=== PATIENT | male | born 1960 | race Caucasian/White ===

== ENCOUNTER 2019-09-22 09:49 | Outpatient (CLI) | payer BC, SELFPAY ==
--- NOTE | 2019-09-22 10:15 | US_ITS ---
WS: [id number] RIGHT UPPER QUADRANT ULTRASOUND HISTORY: pain right upper abdomen COMPARISON: None available. Liver: 16.7 cm in length. Normal size and echogenicity with no intrahepatic dilatation. No mass. Gallbladder: Normally distended gallbladder with no stones or wall thickening. CBD: 4.1 mm Pancreas: Not well visualized. Large amount of bowel gas. Right kidney: 11.2 cm in length. Normal echogenicity with no mass or hydronephrosis. Aorta and IVC: Unremarkable. No ascites. US/US gall bladder [id number] IMPRESSION: Normal RIGHT upper quadrant ultrasound.
== END 2019-09-22 09:50 | disposition home or self-care (01) ==
LOC: RAD 09:53
PROVIDERS: Visit Provider Nurse Practitioner
DX: R10.811 Right upper quadrant abdominal tenderness (principal)
CPT/HCPCS: 76705; 80053; 81003; 85025

== ENCOUNTER → 2021-01-10 09:59 | Outpatient (BNVA) | payer BC, SELFPAY | PROVIDERS: PCP Nurse Practitioner; Visit Provider Nurse Practitioner | DX: I10 Essential (primary) hypertension (principal); M10.9 Gout, unspecified; E55.9 Vitamin D deficiency, unspecified; M25.50 Pain in unspecified joint | CPT/HCPCS: 80053; 80061; 81000; 82306; 84443; 84550; 85025 ==

== ENCOUNTER → 2021-01-23 13:58 | Outpatient (BNVA) | payer BC, SELFPAY | PROVIDERS: PCP Nurse Practitioner; Visit Provider Nurse Practitioner | DX: M10.9 Gout, unspecified (principal); I10 Essential (primary) hypertension; E55.9 Vitamin D deficiency, unspecified; M25.50 Pain in unspecified joint | CPT/HCPCS: 72072; 72100; 73030; 73523 ==

== ENCOUNTER 2021-02-13 06:00 | Outpatient (RCR) | payer BC, SELFPAY | END 2021-02-13 23:59 | disposition home or self-care (01) | LOC: APT 06:00 | PROVIDERS: PCP Nurse Practitioner; Referring Provider Nurse Practitioner; Visit Provider Nurse Practitioner | DX: M25.50 Pain in unspecified joint (principal); M54.5 Low back pain | CPT/HCPCS: 97110; 97161 ==

== ENCOUNTER 2021-02-14 06:00 | Outpatient (RCR) | payer BC, SELFPAY | END 2021-03-16 23:59 | disposition home or self-care (01) | LOC: APT 06:00 | PROVIDERS: PCP Nurse Practitioner; Referring Provider Nurse Practitioner; Visit Provider Nurse Practitioner | DX: M54.5 Low back pain (principal) | CPT/HCPCS: 97110 ==

== ENCOUNTER 2021-03-17 06:00 | Outpatient (RCR) | payer BC, SELFPAY | END 2021-04-16 23:59 | disposition home or self-care (01) | LOC: APT 06:00 | PROVIDERS: PCP Nurse Practitioner; Referring Provider Nurse Practitioner; Visit Provider Nurse Practitioner | DX: M25.50 Pain in unspecified joint (principal) | CPT/HCPCS: 97110 ==

== ENCOUNTER → 2021-10-15 12:05 | Outpatient (BNVA) | payer BC, SELFPAY | PROVIDERS: PCP Nurse Practitioner; Visit Provider Nurse Practitioner | DX: R10.9 Unspecified abdominal pain (principal) | CPT/HCPCS: 80053; 81000; 85025 ==

== ENCOUNTER → 2025-07-11 09:14 | Outpatient (BNVA) | payer BC, SELFPAY | PROVIDERS: PCP Nurse Practitioner; Visit Provider Family Medicine | DX: Z00.00 Encounter for general adult medical examination without abnormal findings (principal); M19.90 Unspecified osteoarthritis, unspecified site | CPT/HCPCS: 80053; 80061; 82607; 83036; 84550; 85025 ==